=== PATIENT | male | born 1980 | race Caucasian/White ===

== ENCOUNTER 2024-10-22 18:48 | Inpatient (IN) | payer MEDICAID ==
[~2024-10-22] VITALS: Ht 170.2 cm; Wt 60.3 kg
[2024-10-22 20:03] LABS: BASOPHILS % 0.4 % (0.0-2.0); EOSINOPHILS % 1.6 % (0.0-5.0); HEMATOCRIT. 38.8 % (42.0-52.0); HEMOGLOBIN. 12.7 g/dL (14.0-18.0); LYMPHOCYTES % 13.4 % (20.0-50.0); MEAN PLATELET VOLUME 7.1 fl (7.4-10.4); MONOCYTES % 9.3 % (2.0-8.0); NEUTROPHILS % 75.3 % (40.0-76.0); PLATELET 348 x1000/uL (130-400); RED BLOOD CELL COUNT 4.27 mill/uL (4.7-6.1); RED CELL DISTRIBUTION WIDTH 14.2 % (11.6-14.6)
[2024-10-22 20:16] LABS: CREATININE 0.7 mg/dL (0.6-1.3); UREA NITROGEN BLOOD 16 mg/dL (9-23)
[2024-10-22] MEDS: SODIUM CHLORIDE 0.9% (SEPSIS BOLUS) IV ONE (20:46)
[2024-10-22] MEDS: MORPHINE SULFATE 4 MG/ML INJ (FOR IV/IM USE) IV STA (20:59)
[2024-10-22] MEDS: ONDANSETRON HCL 4MG/2ML INJ IV STA (20:59)
[2024-10-22] MEDS: PIPERACILLIN/TAZO 3.375G/50ML 50 ML IV ONE (21:02)
[2024-10-22 21:22] LABS: TROPONIN I HIGH SENSITIVITY < 4 ng/L (3.0-53)
[2024-10-22 21:23] LABS: ASPARTATE AMINOTRANSFERASE 21 IU/L (<34); BILIRUBIN DIRECT 0.1 mg/dL (<=3.0); BILIRUBIN TOTAL 0.5 mg/dL (0.1-1.0)
[2024-10-22 21:24] LABS: PROTEIN TOTAL 7.9 g/dL (6.0-8.3)
[2024-10-22] MEDS: VANCOMYCIN 1G PREMIX 200 ML IV ONE (22:06)
[2024-10-22 23:28] LABS: INR 1.0
[2024-10-22 23:43] LABS: CLARITY URINE CLEAR (CLEAR); COLOR URINE YELLOW (YELLOW); GLUCOSE URINE NEGATIVE (NEGATIVE); KETONES URINE 1+ (NEGATIVE); LEUKOCYTE ESTERASE URINE NEGATIVE (NEGATIVE); NITRITE URINE NEGATIVE (NEGATIVE); OCCULT BLOOD URINE NEGATIVE (NEGATIVE); PH URINE 6.0 (4.5-8.0); PROTEIN URINE NEGATIVE (NEGATIVE); SPECIFIC GRAVITY URINE 1.018 (1.005-1.030); UROBILINOGEN URINE 1.0 E.U./dL (0.2-1.0)
[2024-10-23] MEDS: LIDOCAINE HCL/EPINEPHRINE 1%-EPI 1:100,000 20ML VIAL INFIL ONE (00:26)
[2024-10-23] MEDS ORDERED: ACETAMINOPHEN 325MG TABLET PO PRN ×2 (01:30)
[2024-10-23] MEDS ORDERED: HYDROCODONE/ACETAMINOPHEN 10/325MG TABLET PO PRN (01:30)
[2024-10-23] MEDS ORDERED: CLONIDINE 0.1MG TABLET PO PRN (01:30)
[2024-10-23] MEDS ORDERED: VANCOMYCIN 1G PREMIX 200 ML IV SCH (01:30)
[2024-10-23] MEDS ORDERED: KETOROLAC 30MG/ML VIAL IV PRN (01:30)
[2024-10-23] MEDS ORDERED: DIPHENHYDRAMINE 50MG/ML VIAL IV PRN (01:30)
[2024-10-23] MEDS ORDERED: MAGNESIUM/ALUMINUM HYDROXIDE/SIMETHICONE 30ML UDC PO PRN (01:30)
[2024-10-23] MEDS ORDERED: BISACODYL 5MG TABLET PO PRN (01:30)
[2024-10-23] MEDS ORDERED: ZOLPIDEM TARTRATE 5MG TABLET PO PRN (01:30)
[2024-10-23] MEDS ORDERED: ONDANSETRON HCL 4MG/2ML INJ IV PRN (01:30)
[2024-10-23 03:07] VITALS: BP 111/73; PULSE 80; RESP 16; TEMP 37
[2024-10-23] MEDS: VANCOMYCIN 750MG/150ML (BAXTER) IV SCH (07:31)
[2024-10-23] MEDS: SODIUM CHLORIDE 0.9% 3ML FLUSH IVF SCH (07:32)
[2024-10-23 08:00] VITALS: BP 94/56; PULSE 71; RESP 19; TEMP 36.4; O2SAT 99
[2024-10-23] MEDS: DOCUSATE SODIUM 250MG CAPSULE PO SCH (08:58)
[2024-10-23] MEDS: ENOXAPARIN 40MG/0.4ML SYR SUBCUT SCH (09:00)
[2024-10-23] MEDS: VANCOMYCIN 1.25GM/250ML IV SCH (13:41)
[2024-10-23] MEDS ORDERED: NALOXONE HCL 0.4MG/ML VIAL IV PRN (15:15)
[2024-10-23 20:00] VITALS: BP 110/74; PULSE 68; RESP 20; TEMP 36.6; O2SAT 99
[2024-10-23] MEDS: FAMOTIDINE 20MG TABLET PO SCH (22:02)
[2024-10-24 08:00] VITALS: BP 113/80; PULSE 68; RESP 17; TEMP 36.6; O2SAT 98
[2024-10-24 08:08] LABS: BASOPHILS % 0.7 % (0.0-2.0); EOSINOPHILS % 3.8 % (0.0-5.0); HEMATOCRIT. 37.9 % (42.0-52.0); HEMOGLOBIN. 12.5 g/dL (14.0-18.0); LYMPHOCYTES % 22.1 % (20.0-50.0); MEAN PLATELET VOLUME 7.1 fl (7.4-10.4); MONOCYTES % 9.7 % (2.0-8.0); NEUTROPHILS % 63.7 % (40.0-76.0); PLATELET 366 x1000/uL (130-400); RED BLOOD CELL COUNT 4.16 mill/uL (4.7-6.1); RED CELL DISTRIBUTION WIDTH 14.2 % (11.6-14.6)
[2024-10-24 08:24] LABS: CREATININE 0.7 mg/dL (0.6-1.3); UREA NITROGEN BLOOD 9 mg/dL (9-23)
[2024-10-24 12:00] VITALS: BP 115/63; PULSE 56; RESP 17; TEMP 36.5; O2SAT 99
[2024-10-24 16:00] VITALS: BP 101/58; PULSE 62; RESP 17; TEMP 36.3; O2SAT 100
[2024-10-24 20:00] VITALS: BP 112/66; PULSE 72; RESP 20; TEMP 36.3; O2SAT 98
[2024-10-25 08:00] VITALS: BP 115/73; PULSE 76; RESP 20; TEMP 36.2; O2SAT 98
[2024-10-25 12:00] VITALS: BP 104/65; PULSE 70; RESP 20; TEMP 36.2; O2SAT 99
[2024-10-25 16:00] VITALS: BP 94/57; PULSE 86; RESP 20; TEMP 36.9; O2SAT 97
[2024-10-25 17:26] VITALS: BP 94/57; PULSE 86; TEMP 98; O2SAT 97
== END 2024-10-25 17:45 | disposition home or self-care (01) | DRG 383 ==
LOC: ER 18:48 → EDBEDREQ 21:33 → 6EST 10-23 00:18 → EDBEDREQSVC 10-23 00:29 → EDBEDREQ 10-23 00:29 → ENRESERV 10-23 00:46
PROVIDERS: ADMIT Internal Medicine; ATTEND Internal Medicine
PROC: 0Y9H0ZZ Drainage of Right Lower Leg, Open Approach (ICD-10-PCS; principal; 2024-10-23)
DX: L03.115 Cellulitis of right lower limb (principal); F17.200 Nicotine dependence, unspecified, uncomplicated; L02.415 Cutaneous abscess of right lower limb; Z59.00 Homelessness unspecified; Z87.81 Personal history of (healed) traumatic fracture; S82.851K Displaced trimalleolar fracture of right lower leg, subsequent encounter for closed fracture with nonunion; X58.XXXD Exposure to other specified factors, subsequent encounter; Z79.899 Other long term (current) drug therapy
CPT/HCPCS: 10060; 36415; 71045; 73610; 73700; 80048; 80076; 80202; 81003; 83605; 84145; 84484; 85025; 85651; 93005; 93970; 99285; A4606; A6449; J1650; J2004; J2270; J2405; J2543; J3370; J7030